=== PATIENT | female | born 1970 | race Caucasian/White ===

== ENCOUNTER → 2017-11-24 15:44 | Outpatient (CLI) | payer OTHER ==
[2013-06-08 07:45] VITALS: BMI 43.1
[~2017-11-24 15:44] MED LIST: ADDERALL 30 MG30 MG PO; ASPIRIN 81 MG E81 MG PO; ATIVAN0.5 MG PO; ATIVAN1 MG PO; BYSTOLIC5 MG PO; CARAFATE1 G PO; CELEXA40 MG PO; CRESTOR10 MG PO; PLAVIX75 MG PO; PRILOSEC20 MG PO; PRINIVIL20 MG PO
== END | disposition home or self-care (01) ==
LOC: D.MRI 15:44
DX: S63.502A Unspecified sprain of left wrist, initial encounter (principal); X58.XXXA Exposure to other specified factors, initial encounter